=== PATIENT | male | born 1955 | race Caucasian/White ===

== ENCOUNTER → 2020-08-02 08:02 | Outpatient (CLI) | payer BC, SELFPAY ==
--- NOTE | ~2020-08-02 | MR_ITS ---
EXAMINATION: MR knee RT wo con DATE: 08/02/2020 08:44 INDICATION: Generalized right knee pain. Meniscus tear. TECHNIQUE: Magnetic resonance imaging (MRI) of the right knee was performed without intravenous contr ast. Sequences included axial PD-weighted FS FSE, coronal PD-weighted FSE and PD-weighted FS FSE, sag ittal PD-weighted FSE, and sagittal T2-weighted FS FSE. COMPARISON: None. FINDINGS: Medial compartment: There is a complex tear involving body and posterior horn of medial meniscus with displaced flap comp onents superior and inferior to the body segment. There is full-thickness cartilage loss of tibial co ndyle involving the anteromedial articular surface. There is full-thickness cartilage loss of femoral condyle involving the central, medial, and lateral articular surface. There is extensive partial thi ckness cartilage loss of femoral condyle and tibial condyle. There is a subchondral insufficiency fra cture of femoral condyle medially with low signal fracture line and extensive bone marrow edema. Ther e is a subchondral insufficiency fracture of tibial condyle medially with low signal fracture line an d extensive bone marrow edema. Osteophytes are noted. Lateral compartment: There is a vertical tear of posterior horn of lateral meniscus. There is cartilage surface irregulari ty of tibial condyle and femoral condyle. Patellofemoral compartment: There is deep partial thickness cartilage loss of patellar medial and lateral facets and median ridge . There is deep partial thickness cartilage loss of medial trochlea. Osteophytes are noted. Ligaments and tendons: Anterior cruciate ligament is enlarged with increased signal intensity. There is a least a partial te ar of posterior cruciate ligament, which is enlarged with increased signal intensity. There are parti al tears of medial collateral ligament and fibular collateral ligament. There is mild patellar tendin opathy. Fluid: There is a large knee joint effusion with synovitis. There is a 3.0 cm ganglion cyst posterior to lat eral femoral metaphysis. There is trace fluid in a Cobos's cyst. There is semimembranosus-tibial alayna ateral ligament bursitis. There is moderate prepatellar and superficial infrapatellar bursitis. IMPRESSION: 1. Subchondral insufficiency fractures of medial femoral condyle and medial tibial condyle. 2. Severe chondrosis of medial compartment, moderate chondrosis of patellofemoral compartment, and mi ld chondrosis of lateral compartment. 3. Tears of medial and lateral menisci. 4. At least partial tear of posterior cruciate ligament. 5. Enlargement and increased signal in anterior cruciate ligament, which may be mucoid degeneration o r a partial tear. 6. Large knee joint effusion with synovitis. 7. Semimembranosus-tibial collateral ligament bursitis. Reviewed, dictated and finalized at location A. IMPRESSION: 1. Subchondral insufficiency fractures of medial femoral condyle and medial tib ial condyle. 2. Severe chondrosis of medial compartment, moderate chondrosis of patellofemor al compartment, and mild chondrosis of lateral compartment. 3. Tears of medial and lateral menisci. 4. At least partial tear of posterior cruciate ligament. 5. Enlargement and increased signal in anterior cruciate ligament, which may be mucoid degeneration or a partial tear. 6. Large knee joint effusion with synovitis. 7. Semimembranosus-tibial collateral ligament bursitis.
== END ==
PROVIDERS: PCP Internal Medicine
DX: S83.281A Other tear of lateral meniscus, current injury, right knee, initial encounter (principal); S83.241A Other tear of medial meniscus, current injury, right knee, initial encounter; X58.XXXA Exposure to other specified factors, initial encounter; M25.461 Effusion, right knee
CPT/HCPCS: 73721

== ENCOUNTER 2022-08-10 11:00 | Outpatient (RCR) | payer MEDICARE, SELFPAY ==
[2022-06-09 07:43] VITALS: BP_SYST 150
--- NOTE | 2022-06-09 09:52 | OTOPEVAL ---
OCCUPATIONAL THERAPY EVALUATION REPORT 06/09/22 Thank you for referring Charly Elder to [facility] The patient is scheduled to be seen for therapy? 1-2x/week for 6 weeks. Please review, sign, date and return this plan of care HUNTER. I agree with and certify that the following plan of care is medically necessary. Referring Physician Date Referring Provider: Duglas Hernandez MD *OT Outpatient Evaluation Start: 06/09/22 07:39 Evaluation Information Problem Additional Evaluation Detail Cervical stenosis w/ myelopathy s/p laminectomy and occiput-T2 instrumented posterior spinal fusion - 03/28/22 In 2013, he had C4, 5, 6 fused, which he reports he lost some right UE strength and function. Subjective Information s/p acute care, inpatient Query Text:As Reported By Patient/ rehab x2 weeks, home health, Family and now outpatient services. He presents today wearing an aspen collar that he wears at all times unless showering. [place], would like to be able to get back to heavy lifting, mowing, etc. He has progressed to being independent with dressing and toileting. helps with showers. Walks with a cane or walker at home. Reports no falls since returning home. Prior Level of Function Activity Level (Last 3 Months) Occupation Retired Hand Dominance Left Activity of Daily Living Ability Independent Indoor/Home Mobility Independent Community Mobility Independent Stairs Ability Independent Home Setting Home Type House,Single Level Environmental Barriers Stairs, 2-4 Living Situation With Spouse Support Available Local Family Support Mobility Assistive Devices (Used Last 3 Cane,Walker, Rollator,Walker, Months) Wheeled Pain Assessment Timing of Pain Assessment Timing of Pain Assessment Assessment Pain Scale Pain Scale Used Numeric (1 - 10) Self Report Pain Assessment Left Shoulder(s) Reported Pain Level 4 Pain Description Aching Lower Back Reported Pain Level 4 Pain Description Aching,Soreness Neck Reported Pain Level 3 Pain Description Aching P
[2022-07-21 15:15] VITALS: BP_SYST 150
--- NOTE | 2022-07-21 16:22 | OTOPPROG ---
Evaluation Information Assessment Status Progress Diagnosis cervical stenosis w/ myelopathy Subjective Information -Cervical stenosis w/ myelopathy s/p laminectomy and occiput-T2 instrumented posterior spinal fusion - 03/28/22 -In 2013, he had C4, 5, 6 fused, which he reports he lost some right UE strength and function. -Charly has been working with outpatient OT x5 weeks focusing on UE ROM, strengthening, and coordination. He reports improved functional top waddy strength, improved abilities with reaching his face with the right UE, and improved dressing tasks. Overall he is feeling stronger. Assessment OT Clinical Summary Juan Carlos Parks , presents today for OT re- assessment after 5 weeks of therapy. Gross improvements noted in functional strength and ROM of bilateral shoulders, elbows, and hands. Sensation, as measured by the [place]-Tessa monofilament test, demonstrates progress also in bilateral palmar surfaces of the hands. No areas today were tested in the 4.56 threshold (loss of protective). All areas were either measuring in normal, diminished light touch, or diminished protective thresholds. Functional fine motor coordination is also making progress. He continues to exhibit residual weakness and incoordination and will benefit from continued skilled OT for HEP progression and continued functional therapeutic exercsies/activities to facilitate optimal functional strength and use of BUEs. Plan of Care Interventions Therapeutic Exercise,Manual Therapy,Neuro Re- education,Therapeutic Activities,Hot Pack/Cold Pack OT Services Indicated Yes Treatment Frequency and 1x/week for 3-4 weeks. Duration These treatments will address the objective and functional deficits as defined above. The patient will be advanced safely and appropriately in order for the patient to progress towards his/her prior level of function. Additional exercises will be introduced and as well as a comprehensive home exercise program upon discharge, if needed, ?to ensure carryover of functional gains achieved in the clinic. This treatment plan has been reviewed and agreement upon by the patient.
[2022-08-10 11:08] VITALS: BP_SYST 150
--- NOTE | 2022-08-10 13:39 | OTOPDC ---
Assessment and note entered by Maxwell Pace, OTR/Romeo, CHT Evaluation Information Assessment Status Discharge Diagnosis cervial stenosis w/ myelopathy Subjective Information -Cervical stenosis w/ myelopathy s/p laminectomy and occiput-T2 instrumented posterior spinal fusion - 03/28/22 -In 2013, he had C4, 5, 6 fused, which he reports he lost some right UE strength and function. -Charly has been working with outpatient OT x8 weeks focusing on UE ROM, strengthening, and coordination. 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 He states that external rotation of the right shoulder continues to be weak, which restricts his ability to reach the back of his head to wash his hair. Reported Pain Level Pain Score 4: Self Report Additional Pain Score Comments Reporting some low back pain, rated at 4-5/10 when standing. Assessment OT Clinical Summary Juan Carlos Parks , presents today for OT re- assessment after 8 weeks of therapy. Gross improvements noted in functional strength and ROM of bilateral shoulders, elbows, and hands. Sensation, as measured by the [place]-Tessa monofilament test, demonstrates progress also in bilateral palmar surfaces of the hands. No areas today were tested in the 4.56 threshold (loss of protective). All areas were either measuring in normal, diminished light touch, or diminished protective thresholds. At this time he is independent with all HEPs to continue to work on improved ROM, strength, and functional coordination. No further skilled OT indicated at this time. Plan of Care OT Services Indicated No
== END 2022-08-11 16:04 | disposition home or self-care (01) ==
LOC: ANHOT 11:00
PROVIDERS: PCP Internal Medicine
DX: M48.02 Spinal stenosis, cervical region (principal); G95.9 Disease of spinal cord, unspecified; Z98.1 Arthrodesis status
CPT/HCPCS: 97110; 97140; 97167

== ENCOUNTER 2022-09-05 11:00 | Outpatient (RCR) | payer MEDICARE, SELFPAY ==
--- NOTE | 2022-06-09 15:22 | PTOPEVAL ---
PHYSICAL THERAPY INITIAL EVALUATION. Thank you for referring Charly Elder to [facility] The patient is scheduled to be seen for therapy? 2x/week for 8 weeks. Please review, sign, date and return this plan of care HUNTER. I agree with and certify that the following plan of care is medically necessary. Referring Physician Date Attending Provider: Duglas Cochran MD Place *PT Outpatient Evaluation Start: 06/09/22 Evaluation Information Additional Evaluation Detail Cervical stenosis w/ myelopathy s/p laminectomy and occiput-T2 instrumented posterior spinal fusion - 03/28 In 2013, he had C4, 5, 6 fused , which he reports he lost some right UE strength and function. Subjective Information s/p acute care, inpatient Query Text:As Reported By Patient/ rehab x2 weeks, home health, Family and now outpatient services. He presents today wearing an aspen collar that he wears at all times unless showering. Patient and his live on a farm, would like to be able to get back to heavy lifting, mowing, etc. He has progressed to being independent with dressing and toileting. helps with showers. Walks with a cane at home and a rollator when in the community. Reports no falls since returning home. He reports over the last multiple years he has numbness in his LEs. He reports decreased ankle function making it difficult and challenging to walk on uneven surfaces. He would like to ambulate further distances and uneven distances without a cane, perform a curb step without UE assist, floor transfers, and eventually play golf again. Pain Assessment Self Report Pain Assessment Lower Back Reported Pain Level 1 Lowest Pain Intensity 0 Greatest Pain Intensity 5 Lower Extremity Range of Motion Gross Lower Extremity Range of Motion L ankle active dorsiflexion 5deg
--- NOTE | 2022-08-01 15:33 | PTOPPROG ---
Assessment and note entered by Shivani Caceres, PT, DPT Evaluation Information Assessment Status Progress Diagnosis Cervical stenosis w/ myelopathy Subjective Information Pt states he is improving but not where he wants to be. He states he is starting to wean off the cane still. he states he feels like his strength is improving, but slowly. 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 He reports increased neck tightness. Assessment PT Clinical Summary Charly Rangel presents to therapy today following 13 visits of skilled therapy today treat his cervical myelopathy. Today he demonstrates improved LE strength. He demonstrates improvements with his balance, gait speed, and functional mobility. He continues to have significant gait deviations and requires the use of a single point cane for balance. He remains at a high risk of falls according to standardized testing. Continuation of skilled physical therapy services are indicated to address the deficits noted above , to improve safety and functional mobility, and to progress towards baseline function. Plan of Care PT Services Indicated Yes Treatment Frequency and 2x/wk for 5 wks Duration These treatments will address the objective and functional deficits as defined above. The patient will be advanced safely and appropriately in order for the patient to progress towards his/her prior level of function. Additional exercises will be introduced and as well as a comprehensive home exercise program upon discharge, if needed, ?to ensure carryover of functional gains achieved in the clinic. This treatment plan has been reviewed and agreement upon by the patient.
--- NOTE | 2022-09-05 12:57 | PTOPPROG ---
Assessment and note entered by Shivani Caceres, PT, DPT Evaluation Information Assessment Status Progress Diagnosis Cervical stenosis w/ myelopathy Subjective Information Pt states he has intermittent back pain of a 3-4/ 10. He states he feels tightness in his neck that increases with the amount of work he is doing. He states he can walk further without a cane, and he continues to use a rollator when walking outside. He is able to carry light things around his home to help with daily tasks. He states his numbness and tingling in his hands and feet is about the same, but his dexterity is improving. He states his shoulder is feeling better and he has not had pain from it in almost a month. Assessment PT Clinical Summary Charly Rangel presents to therapy today for his progress report following 21 visits of skilled physical therapy to treat his diagnosis of cervical myelopathy. Today he demonstrates slow but consistent improvements in his BLE strength globally but this continues to be decreased from normal and he requires multiple substitutions to complete daily tasks. He demonstrates an improved time with his TUG and 5xSTS but still requires increased time to complete each, and requires use of UE support to perform the 5xSTS. Continuation of skilled physical therapy services are indicated to address the deficits noted above, to improved strength, to promote safety, and to promote unlimited functional mobility. Plan of Care Interventions Gait Training,Manual Therapy,Neuro Re-education, Patient/Caregiver Educati,Therapeutic Activities, Therapeutic Exercise PT Services Indicated Yes Treatment Frequency and 2x/wk for 5 wks Duration These treatments will address the objective and functional deficits as defined above. The patient will be advanced safely and appropriately in order for the patient to progress towards his/her prior level of function. Additional exercises will be introduced and as well as a comprehensive home exercise program upon discharge, if needed, ?to ensure carryover of functional gains achieved in the clinic. This treatment plan has been reviewed and agreement upon by the patient.
== END 2022-09-07 23:59 | disposition home or self-care (01) ==
LOC: ANHPT 11:00
PROVIDERS: PCP Internal Medicine
DX: M48.02 Spinal stenosis, cervical region (principal); G95.9 Disease of spinal cord, unspecified; Z98.1 Arthrodesis status
CPT/HCPCS: 97110; 97112; 97116; 97162; 97530

== ENCOUNTER 2022-11-01 08:45 | Outpatient (RCR) | payer MEDICARE, SELFPAY ==
--- NOTE | 2022-09-15 16:45 | PTOPEVAL1 ---
Assessment and note entered by Kenia Kaplan, PT Evaluation Information Assessment Status Progress Diagnosis Cervical stenosis w/ myelophathy Subjective Information Pt states he has intermittent back pain of a 3-4/ 10. He states he feels tightness in his neck that increases with the amount of work he is doing. He states he can walk further without a cane. He is able to carry light things around his home to help with daily tasks. He states his numbness and tingling in his hands and feet is about the same, but his dexterity is improving. He states his shoulder is feeling better and he has not had pain from it in almost a month. Reported Pain Level Pain Score Offers no c/o pain this date Assessment PT Clinical Summary Pt emperatriz's overall improvement of BUEs allyssa RUE in gravity resisted positions showing full Active ROM right shoulder flexion and abduction in supine in addition to full active ROM RUE elbow flexion bicep strength 3/5. Mobility pt patricia improved balance scores via Tobias balance scale increasing score from 39 to 44/56, timed up and go test reduced from 16 to 13 seconds, and was able to reduce time for 5x sit to stand test to 20 seconds from 25 without use of hands. Cont to demo overall dyskinesias, weakness, postural abnormalities, and gait and balance issues but is continuing to make progress. Discussed with patient today use of pliable AFO for assist in right foot dorsiflexion during ambulation to decrease risk of falls as well. Pt will benefit from cont therapy to continue improvement and become most functionally independent as able. Plan of Care Interventions Therapeutic Exercise,Patient/Caregiver Educati, Manual Therapy,Neuro Re-education,Therapeutic Activities,Gait Training PT Services Indicated Yes These treatments will address the objective and functional deficits as defined above. The patient will be advanced safely and appropriately in order for the patient to progress towards his/her prior level of function. Additional exercises will be introduced and as well as a comprehensive home exercise program upon discharge, if needed, ?to ensure carryover of functional gains achieved in the clinic. This treatment plan has been reviewed and agreement upon by the patient.
--- NOTE | 2022-10-06 11:30 | BUPTOPEVAL1 ---
Assessment and note entered by Kenia Kaplan, PT Evaluation Information Assessment Status Progress Diagnosis Cervical stenosis w/ myelophathy Subjective Information Pt states he has intermittent back pain of a 3-4/ 10. He states he feels tightness in his neck that increases with the amount of work he is doing. He states he can walk further without a cane, and he continues to use a rollator when walking outside. He is able to carry light things around his home to help with daily tasks. He states his numbness and tingling in his hands varies with neck tension. Reported Pain Level Pain Score 3,3: Self Report Additional Pain Score Comments neck feels tight, numbness ranking up to an 8/10 Today is a soreness after being more active yesterday and lifting buckets Assessment PT Clinical Summary Pt cont to demo significant deficits in proprioception, coordination, strength, muscle patterning and thus balance, and mobiltiy and gait deficits. Standardized tests and observable changes have improved overall. Pt cont to c/o numbness in hands changing with tension in his neck musculature. IASTM initiated to soft tissues surrounding cervical incision today with taping to decompress soft tissues in attempt to improve nn conduction. Pt has not ceased progression and cont to have deficits that would benefit from continued therapy. Increasing education on modifications to allow pt to be more safe with activities, to improve muscle activity without causing reliance on DME in order to improve safe and functional independence. Plan of Care Interventions Check Out for Orthotic/Pr,Electrical Stimulation, Hot Pack/Cold Pack,Manual Therapy,Neuro Re- education,Prosthetic Training,Therapeutic Activities,Therapeutic Exercise,Other Other Interventions Fluidotherapy PT Services Indicated Yes Treatment Frequency and 2x weekly x 5 weeks Duration These treatments will address the objective and functional deficits as defined above. The patient will be advanced safely and appropriately in order for the patient to progress towards his/her prior level of function. Additional exercises will be introduced and as well as a comprehensive home exercise program upon discharge, if needed, ?to ensure carryover of functional gains achieved in the clinic. This treatment plan has been reviewed and agreement upon by the patient.
--- NOTE | 2022-11-01 16:06 | BUPTOPEVAL1 ---
Assessment and note entered by Kenia Kaplan, PT Assessment Status Progress Report Diagnosis Cervical stenosis w/ myelophathy Subjective Information Pt states he feels the manual and taping are helping in his neck tension. Cont to have pain in back and shoulder at times as well. He states his numbness and tingling in his hands and feet is about the same, but his dexterity is improving. Reports he will be trying acupuncture for the numbness in his hands. Reported Pain Level Pain Score 0: Self Report currently but pain will increase in back and shoulder pending activity Assessment PT Clinical Summary Pt cont to demo significant deficits in proprioception, coordination, strength, muscle patterning and thus balance, and mobility and gait deficits. Standardized tests and observable changes have improved overall. Today evaluation shows decreased passive ROM of bilat hips as well as decreased strength bilat glute med and max ( although overall improved) Pt cont to make slow and steady progress with balance, strength, and overall quality and safety of movement. Thus pt will benefit from continued physical therapy to help pt achieve maximal independence and function. Plan of Care Interventions Check Out for Orthotic/Pr,Electrical Stimulation, Hot Pack/Cold Pack,Manual Therapy,Neuro Re- education,Prosthetic Training,Therapeutic Activities,Therapeutic Exercise,Other Other Interventions Fluidotherapy PT Services Indicated Yes Treatment Frequency and 2x weekly x 4 weeks Duration These treatments will address the objective and functional deficits as defined above. The patient will be advanced safely and appropriately in order for the patient to progress towards his/her prior level of function. Additional exercises will be introduced and as well as a comprehensive home exercise program upon discharge, if needed, ?to ensure carryover of functional gains achieved in the clinic. This treatment plan has been reviewed and agreement upon by the patient.
--- NOTE | 2022-11-08 16:55 | PCPTNOTE ---
This treatment is being continued on visit number [id number]. Please see documentation on both accounts to view progress. Completed interventions, outcomes, and problems have been marked as Inactive to facilitate the copying of the Care plan routine for recurring accounts.
== END 2022-11-08 15:07 | disposition still patient (30) ==
LOC: ANHHIPT 08:45
PROVIDERS: PCP Internal Medicine
DX: M48.02 Spinal stenosis, cervical region (principal); G95.9 Disease of spinal cord, unspecified; Z98.1 Arthrodesis status
CPT/HCPCS: 97014; 97110; 97112; 97116; 97140; 97530; G0283

== ENCOUNTER 2023-01-23 11:15 | Outpatient (RCR) | payer MEDICARE, SELFPAY ==
--- NOTE | 2022-11-08 16:55 | PCPTNOTE ---
The treatment documented on this account is a continuation of the treatment documented on visit number [id number]. Please see documentation on both accounts to view progress. The Plan of Care has been transitioned and updated within the new V#. I have addressed and agree with the discipline specific Problems, Interventions, and Goals for the current certification period. Completed interventions, outcomes, and problems have been marked as Inactive to facilitate the copying of the Care plan routine for recurring accounts.
--- NOTE | 2022-11-21 14:49 | PCPTNOTE ---
Patient called & cancelled scheduled appointment this date due to being sick, having Covid. Will resume therapy as able.
--- NOTE | 2022-12-01 13:41 | OTOPEVDC ---
Assessment and note entered by Maxwell Pace, OTR/Romeo, CHT Thank you for referring Charly Elder to [facility].? An evaluation has been completed. No further treatment is needed. Evaluation Information Assessment Status Evaluation Subjective Information Patient reports no pain today. States he has been doing his HEP since he was discharged here back in Jul. States he notices progress with being able to carry items and walk, such as bringing groceries in. 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 Reported Pain Level Pain Score 0: Self Report Assessment OT Clinical Summary Charly is a 67 year-old, left handed male who presents for OT evaluation to compare to his progress from his previous assessment back in Jul 2022. At this time his shoulder and elbow ROM has remained relatively unchanged. He is raising the right shoulder 10 more degrees than a few months ago. The right elbow is slightly stronger (4-/5 to 4/5 muscle grade). 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 less and the left is measuring the same. Discussed these findings and recommended that he continues to work on his current home exercise program for flexibility and strengthening and to focus on gross gripping when working with his putty. He verbalized excellent understanding. No further skilled OT indicated at this time. Plan of Care OT Services Indicated No
--- NOTE | 2023-01-15 16:27 | PTOPPROG ---
Assessment and note entered by Kenia Kaplan, PT Evaluation Information Assessment Status Progress Diagnosis Cervical stenosis w/ myelophathy Subjective Information States feels he can walk better and have less discomfort. Was able to walk on uneven ground and get on the ground with his granddaughter without discomfort. Assessment PT Clinical Summary Pt cont to make slow progress with appropriate function and less compensatory techniques. He has been attending therapy consistently for multiple months with strength deficits, coordination deficits, difficulty with mobility and safe ambulation. He has been showing improvement in strength and range, however cont to demo significantly decreased strength and control of rigth glute med and anterior tib specifically with loading of right leg during ambulation. Due to the nature of his progress, pt has reached a point at which he would benefit from a change in focus to a half-way home program to continue to make improvements independently. Pt will also benefit greatly from use of a dynamic AFO for consistent active assistive ROM of dorsiflexion in gait to improve muscle activation patterns of anterior tibialis. Plan of Care Interventions Gait Training,Hot Pack/Cold Pack,Neuro Re- education,Therapeutic Exercise,Self-Care/Home Management PT Services Indicated Yes Treatment Frequency and 1x weekly x 4 weeks to finalize home program, and Duration assist with ankle foot orthosis application These treatments will address the objective and functional deficits as defined above. The patient will be advanced safely and appropriately in order for the patient to progress towards his/her prior level of function. Additional exercises will be introduced and as well as a comprehensive home exercise program upon discharge, if needed, ?to ensure carryover of functional gains achieved in the clinic. This treatment plan has been reviewed and agreement upon by the patient.
== END 2023-01-30 13:34 | disposition still patient (30) ==
LOC: ANHHIPT 11:15
PROVIDERS: PCP Internal Medicine
DX: M48.02 Spinal stenosis, cervical region (principal); G95.9 Disease of spinal cord, unspecified; Z98.1 Arthrodesis status
CPT/HCPCS: 97110; 97112; 97140; 97166

== ENCOUNTER 2023-02-14 10:15 | Outpatient (RCR) | payer MEDICARE, SELFPAY ==
--- NOTE | 2023-02-14 15:41 | PTOPDC ---
Assessment and note entered by Kenia Kaplan, PT Assessment Status Discharge Diagnosis gait and mobility deficit Onset 05/2022 Subjective Information Pt had surgery on cervical spinein 05/2022 secondary to cervical spondylosis wth myelopathy Reported Pain Level Pain Score 2: Self Report Assessment PT Clinical Summary Pt has attended therapy consistently for many months after cervical surgery. He has advance greatly in multiple aspects of mobility including 5x sit to stand test, quality of movement with with sit>stand, improved balance and ambulation ability with less assist required. Pt is currently in process of obtaining dynamic ankle foot orthosis to continue to improve ambulation, reports understanding of continued exercise to improve gait related to glute med weakness, and when to return to therapy if needed. Pt scores remain unchanged compared to last reevaluation suggesting pt appears to have plateaued in therapy at this time. Thus pt is being discharged from current POC.
== END 2023-02-15 09:19 | disposition home or self-care (01) ==
LOC: ANHHIPT 10:15
PROVIDERS: PCP Nurse Practitioner Family
DX: M48.02 Spinal stenosis, cervical region (principal); G95.9 Disease of spinal cord, unspecified; Z98.1 Arthrodesis status
CPT/HCPCS: 97110; 97112

== ENCOUNTER 2024-02-29 13:30 | Outpatient (RCR) | payer MEDICARE, SELFPAY ==
--- NOTE | 2023-12-13 16:25 | PTOPEVAL1 ---
Assessment and note entered by Kenia Kaplan, PT Evaluation Information Assessment Status Diagnosis Evaluation right drop foot, cervical radiculopathy low back pain, weakness, other abnormalities of gait and mobility, paresthesias, anesthesias Subjective Information Pt reports his main concern is his walking and core strength. States back hurts when standing long periods. Feels like may need a few more abdominal strengthening activities wants to strengthen to be able to walk without a cane When was on prednisone for 2 weeks, had more energy and felt like he was clearer. Was taking methatrexate and has been on Marifer for a year, stopped this as felt this wasn't helping. Since last therapy did red light laser therapy, acupuncture, foot detox, massage, nutrition supplements. Feels like has hit a wall, feels like hands are number than they were. Was referred to neurologist at [facility] and they did a brain and back MRI, states no sign of multiple sclerosis or neurological problems. Neurologist states spinal cord was injured and attributes issues to this. Reports has new sensation of numbness in left side of chin and sometimes in left side of lip. Also felt like was being strangled and with the prednisone felt relief from the tension of this. Has signed up with Dr. Diana in [place] [facility] and now has his own equipment, and is on day 5. Does this on his legs and feet 2x daily, electrical stim in a bucket of water and puts feet in bucket of water, then also does e-stim stimulator gloves with nutritional supplements. Has not done anodyne on hands , but is going to start hands and arms today. Feels like doctors may be missing something. Is trying to do nutrition and other methods of healing. Reported Pain Level Pain Score 1: Self Report Assessment PT Clinical Summary Pt presents with paresthesia, anesthesia, cervical radiculopathy, unspecified drop foot, and a history of multiple cervical spine surgeries, lumbar surgery, and reported prior spinal cord injury. He states his biggest concern is walking without a cane, and his back pain. He reports
--- NOTE | 2023-12-13 16:27 | OPREHPOC ---
Outpatient Therapy Plan of Care This is a Multidisciplinary Plan of Care that may contain components documented by all disciplines (PT, OT, and ST.) PT Goal 1 Goal Pt will be independent in HEP Pt will verbalize understanding of diagnosis and prognosis Target Visit 10 PT Problem 2 PT Problem #2 Impaired Strength PT Goal 1 Goal Pt will demo equal strength RLE and LLE in all tested planes Target Visit 10 PT Goal 2 Goal Pt will demo strength of 4/5 in all tested planes Target Visit 20 PT Problem 3 PT Problem #3 Impaired Gait PT Goal 1 Goal Pt will demo ability to perform upright gait with improved base of support and improved hip flexion Target Visit 10 PT Goal 2 Goal Pt will demo gait with resolution of Trendelenburg PT Problem 5 PT Problem #5 Impaired Flexibility PT Goal 1 Goal Pt will demo prone knee flexion of 100 degrees to demo improved quad flexibilty Target Visit 10 PT Goal 2 Goal Pt will demo improved illiotibial band flexibility of LLE to equal RLE Target Visit 20
--- NOTE | 2024-01-22 09:25 | PTOPPROG ---
Assessment and note entered by Kenia Kaplan, PT Assessment Status Progress Report Therapy Conditions Right foot drop, cervical radiculopathy low back pain, weakness, oth abnormalities of gait and mobility paresthesias, anesthesias Subjective Information Pt states his back pain is a new constant that hadn't had previously he is noticing as a weakness . Recently on vacation had a lot of steps had to address. States this feels like what aggravated his back. Was also walking a lot on vacation. Had one day that his back pain was up to an 8/10, hadn 't experienced pain like that in a long time . Used Tylenol Arthritis and stretching and ice bag over the course of a day (3 doses of tylenol). Next day was almost tolerable but was walking with every step expecting knife pain in the back . Was able to do everything planned but with caution and slow motion. Pt reports cont to use red light therapy and electricity (90 day program) about half way through but no changes seen yet. Numbness is still beyond hand and fingers. Assessment PT Clinical Summary Pt had attended therapy consistently for 7 visits then had a break due to vacation for multiple weeks. Returned today for reevaluation and continuation. Cont to demo significant weakness bilat hips and core, decreased hip ROM in multiple planes overall, continued muscle activation of anterior tib however has not increased in strength yet. Reports while on vacation had a couple days in which his back was very painful. Also states his other program with infrared and stim has not had any effect on his paraesthesias yet. Pt will benefit from continued therapy with possible mild shift in focus to offload lumbar spine, possible dry needling for muscle tone and discomfort, and continued isolated strengthening for improved gait and mobility Plan of Care Interventions Check Out for Orthotic/Pr,Electrical Stimulation, Gait Training,Hot Pack/Cold Pack,Manual Therapy, Neuro Re-education,Therapeutic Activities, Therapeutic Exercise,Self-Care/Home Management PT Services Indicated Yes Treatment Frequency and 1-2x weekly x 12 visits Duration These treatments will address the objective and functional deficits as defined above. The patient will be advanced safely and appropriately in order for the patient to progress towards his/her prior level of function. Additional exercises will be introduced and as well as a comprehensive home ex
--- NOTE | 2024-02-29 14:15 | PTOPDC ---
Assessment and note entered by Kenia Kaplan, PT Assessment Status Discharge Diagnosis right foot drop, cervical radiculopathy, parasthesias and aneasthesias Onset chronic Subjective Information Pt states he has recently been to two neuro surgeons who feel it is necessary to perform laminectomies on his lumbar spine He also has recently started seeing urology and cardiology for other co-morbidities Wants to wrap up therapy until he figures out what he wants to do with this new information Reported Pain Level Pain Score 3: Self Report Assessment PT Clinical Summary Pt attended 11 therapy sessions with two gaps in the plan of care due to vacations. He has presented at his scheduled times and gives full effort during therapy treatments. He has been educated in DME, optional therapies, and resources to modify his lifestyle and decrease burden of activities. Through this plan of care his back pain has continued to worsen, his hip ROM and strength has not progressed, and his drop foot continues. His recent visits with neurosurgery have provided additional avenues of addressing his deficits thus pt would like to explore these routes at this time. Thus is being discharged today per pt request. Plan of Care PT Services Indicated No
== END 2024-03-12 23:59 | disposition home or self-care (01) ==
LOC: ANHHIPT 13:30
PROVIDERS: PCP Family Medicine; Visit Provider Family Medicine
DX: M54.12 Radiculopathy, cervical region (principal); M21.379 Foot drop, unspecified foot; R53.1 Weakness; R20.0 Anesthesia of skin; R20.2 Paresthesia of skin
CPT/HCPCS: 97014; 97110; 97112; 97140; 97163; 97750; G0283

== ENCOUNTER 2024-03-06 00:48 | Day surgery (SDC) | payer MEDICARE, SELFPAY ==
[2024-03-06 08:12] VITALS: BP 163/83; PULSE 69; RESP 18; TEMP 36.2; O2SAT 100
[2024-03-06] MEDS: LACTATED RINGERS 1,000 ML 150 ML IV CONT (08:30)
--- NOTE | 2024-03-06 09:00 | WPDANESEPPF ---
Anes - Initial Pre Proc Eval Procedure: Operation Date: 03/06/24 09:30 Proposed Procedures p Screening Colonoscopy - Gonzalo Ellsworth DO Date/Time: 03/06/24 09:00 Surgeon: Gonzalo Ellsworth DO Pre Op Diagnosis: History of colon polyps Patient Data Age: 68 Gender: M Height: Weight: 124.9 kg Last Vital Signs Temp 97.1 F L 03/06/24 08:12 Pulse 69 03/06/24 08:12 Resp 18 03/06/24 08:12 BP 163/83 H 03/06/24 08:12 Pulse Ox 100 03/06/24 08:12 O2 Del Method Room Air 03/06/24 08:12 Allergies Allergy/AdvReac Type Severity Reaction Status Date / Time No Known Allergies Allergy Verified 03/06/24 08:10 Home Medications Medication Instructions Recorded Confirmed Type Bacillus coagulans 250 million 250 cell PO DAILY 12/04/22 02/22/24 History cell chewable tablet (Digestive Advantage Probiotic Gummy) acetaminophen 650 mg 650 mg PO Q12H 12/04/22 02/22/24 History tablet,extended release (Arthritis Pain Relief (acetaminophen) ER) adalimumab 40 mg/0.4 mL See Rx Instructions subcut .COMPLEX 12/04/22 02/22/24 History subcutaneous syringe kit (Humira(CF)) aspirin 81 mg tablet,delayed 81 mg PO DAILY 12/04/22 02/22/24 History release (Adult Low Dose Aspirin) calcium carb-vit [id number] 1 tablet PO DAILY 12/04/22 02/22/24 History 333 mg-200 unit-133 mg-5 mg tablet cholecalciferol (vitamin D3) 62.5 25 mcg PO DAILY 12/04/22 02/22/24 History mcg (2,500 unit) capsule multivitamin (Daily Multi-Vitamin 1 tablet PO DAILY 12/04/22 02/22/24 History tablet) levothyroxine 125 mcg tablet See Rx Instructions .Route 11/13/23 02/22/24 Rx .COMPLEX #90 tabs meloxicam 15 mg tablet See Rx Instructions .Route 11/22/23 02/22/24 Rx .COMPLEX #90 tabs losartan 100 mg tablet See Rx Instructions .Route 11/30/23 02/22/24 Rx .COMPLEX #90 tabs prednisone 5 mg tablet See Rx Instructions .Route 03/03/24 03/06/24 Rx .COMPLEX #90 tabs Patient hx anesthesia problems: none Family hx anesthesia problems: none Results Review: All pre-operative results and documents have been reviewed as part of the pre-operative evaluation. [facility] Past Medical History Medical History Anemia Arthritis Calf muscle weakness Cervical radiculopathy Claustrophobia Excessive cerumen in ear canal Foot drop Hypertension Hypothyroid Lumbar pain Numbness and tingling Trigger finger of right hand Weakness Surgical History Surgical History H/O arthroscopy of knee H/O discectomy History of carpal tunnel release History of knee replacement, total right-10/14/2020 left-11/28/2021 History of laminectomy L3, L4 Hx of left knee surgery Family History Family History Father Hypertension Heart disease Cerebrovascular accident Mother Diabetes mellitus Cancer Sibling Diabetes mellitus Hypertension Heart disease Cerebrovascular accident Other Family history of arthritis Family history of congestive heart failure Family history of malignant neoplasm Social History Social History (Updated 02/12/24 @ 13:38 by Vikki Schwarz CMA) Smoking status: Never smoker Alcohol intake: current Drinks per week: 2 Substance use: never Substance use type: does not use Do You Feel Safe in your Home?: Yes Lack of Transportation: No Lack of Food: Never True Current Housing: I Have Housing Concerned About Future Housing: No Difficulty Paying Gas/Electric Bills: No Difficulty Paying for Meds: No Currently Unemployed: No Education: Associate Degree Difficulty w/ Childcare or Family Care: No Living arrangements: with family Occupation/Education: retired Gender identity (if verbalized by the patient): Male Sexual Orientation (if Verbalized by the Patient): Straight or Hete
--- NOTE | 2024-03-06 09:44 | PM.IMHP ---
H&P: HPI History of Present Illness Date/Time: 03/06/24 09:44 Chief Complaint: history of colon polyps Narrative: this is a 68-year-old man who presents for colonoscopy. His last colonoscopy was 5 years ago and a polyp was removed. He denies any family history of colon cancer. He denies any hematochezia or melena. Review of Systems Review of Systems: All systems reviewed & are unremarkable except as noted in HPI and below Constitutional: Constitutional: Denies chills, Denies fever(s), Denies headache(s) and Denies weight loss Eyes: Eyes: Denies change in vision ENT: Denies dizziness, Denies headache(s), Denies neck mass and Denies throat swelling Cardiovascular: Cardiovascular: Denies chest pain, Denies lightheadedness and Denies dyspnea Respiratory: Respiratory: Denies cough, Denies dyspnea and Denies wheezing Gastrointestinal: Gastrointestinal: Denies abdominal pain, Denies change in bowel habits, Denies nausea and Denies vomiting Genitourinary: Genitourinary: Denies hematuria and Denies dysuria Musculoskeletal: Musculoskeletal: Reports as per HPI Integumentary/Breasts: Skin/Breast: Reports as per HPI Neurologic: Denies dizziness and Denies headache(s) Allergic/Immunologic: Allergic/Immunologic: Denies throat swelling and Denies wheezing [facility] Past Medical History Medical History Anemia Arthritis Calf muscle weakness Cervical radiculopathy Claustrophobia Excessive cerumen in ear canal Foot drop Hypertension Hypothyroid Lumbar pain Numbness and tingling Trigger finger of right hand Weakness Surgical History Surgical History H/O arthroscopy of knee H/O discectomy History of carpal tunnel release History of knee replacement, total right-10/14/2020 left-11/28/2021 History of laminectomy L3, L4 Hx of left knee surgery Family History Family History Father Hypertension Heart disease Cerebrovascular accident Mother Diabetes mellitus Cancer Sibling Diabetes mellitus Hypertension Heart disease Cerebrovascular accident Other Family history of arthritis Family history of congestive heart failure Family history of malignant neoplasm Social History Social History (Updated 02/12/24 @ 13:38 by Vikki Schwarz CMA) Smoking status: Never smoker Alcohol intake: current Drinks per week: 2 Substance use: never Substance use type: does not use Do You Feel Safe in your Home?: Yes Lack of Transportation: No Lack of Food: Never True Current Housing: I Have Housing Concerned About Future Housing: No Difficulty Paying Gas/Electric Bills: No Difficulty Paying for Meds: No Currently Unemployed: No Education: Associate Degree Difficulty w/ Childcare or Family Care: No Living arrangements: with family Occupation/Education: retired Gender identity (if verbalized by the patient): Male Sexual Orientation (if Verbalized by the Patient): Straight or Heterosexual Spiritual care concerns: No Agree to blood products: Yes Meds Home Medications and Allergies Home Medications Medication Instructions Recorded Confirmed Type Bacillus coagulans 250 million 250 cell PO DAILY 12/04/22 02/22/24 History cell chewable tablet (Digestive Advantage Probiotic Gummy) acetaminophen 650 mg 650 mg PO Q12H 12/04/22 02/22/24 History tablet,extended release (Arthritis Pain Relief (acetaminophen) ER) adalimumab 40 mg/0.4 mL See Rx Instructions subcut .COMPLEX 12/04/22 02/22/24 History subcutaneous syringe kit (Humira(CF)) aspirin 81 mg tablet,delayed 81 mg PO DAILY 12/04/22 02/22/24 History release (Adult Low Dose Aspirin) calcium carb-vit [id number] 1 tablet PO DAILY 12/04/22 02/22/24 History 333 mg-200 unit-133 mg-5 mg tablet cholecalciferol (vitamin
[2024-03-06 10:26] VITALS: BP 118/60; PULSE 70; RESP 23; O2SAT 98
[2024-03-06 10:36] VITALS: BP 101/56; PULSE 68; RESP 20; O2SAT 96
[2024-03-06 10:46] VITALS: BP 147/77; PULSE 61; RESP 24; O2SAT 100
== END 2024-03-06 10:53 | disposition home or self-care (01) ==
PROVIDERS: PCP Family Medicine; Visit Provider Surgery
PROC: 0DJD8ZZ Inspection of Lower Intestinal Tract, Via Natural or Artificial Opening Endoscopic (ICD-10-PCS; CPT 45378; principal; 2024-03-06 09:30)
DX: Z12.11 Encounter for screening for malignant neoplasm of colon (principal); K57.30 Diverticulosis of large intestine without perforation or abscess without bleeding; I10 Essential (primary) hypertension; E03.9 Hypothyroidism, unspecified; D64.9 Anemia, unspecified; F40.240 Claustrophobia; Z79.620 Long term (current) use of immunosuppressive biologic; Z79.82 Long term (current) use of aspirin; Z79.52 Long term (current) use of systemic steroids; Z98.890 Other specified postprocedural states; Z98.1 Arthrodesis status; Z86.010 Personal history of colon polyps; Z80.9 Family history of malignant neoplasm, unspecified; Z82.49 Family history of ischemic heart disease and other diseases of the circulatory system
CPT/HCPCS: G0105; J2001; J2704; J7120

== ENCOUNTER 2024-10-27 14:47 | Outpatient (CLI) | payer MEDICARE, SELFPAY ==
--- NOTE | ~2024-10-27 | MR_ITS ---
EXAMINATION: MR shoulder RT wo con DATE: 10/27/2024 16:29 INDICATION: Right shoulder pain. TECHNIQUE: Magnetic resonance imaging (MRI) of the right shoulder was performed without intravenous c ontrast. COMPARISON: None. FINDINGS: Coracoacromial arch: The acromion undersurface is curved in morphology (type II). There is severe acromioclavicular joint osteoarthritis including inferiorly directed osteophytes. There is an effusion of acromioclavicular j oint that communicates with the subacromial/subdeltoid bursa. There is severe subacromial/subdeltoid bursitis. Rotator cuff: There is a full-thickness tear of supraspinatus and infraspinatus tendons measuring greater than 5 cm anterior to posterior by greater than 5 cm proximal to distal. Teres minor tendon is normal. There i s an articular-sided partial tear of subscapularis tendon. There is moderate fatty atrophy of suprasp inatus and infraspinatus muscle bellies, severe fatty atrophy of teres minor muscle belly, and modera te fatty atrophy of subscapularis muscle belly. Biceps tendon and glenoid labrum: There is a complete tear of proximal biceps tendon. There is extensive tearing of the glenoid labrum. Fluid: There is a large glenohumeral joint effusion. Bones/cartilage: There is widening of the glenohumeral joint. There is partial-thickness cartilage loss of glenoid and humeral head. IMPRESSION: 1. Massive full-thickness rotator cuff tear. 2. Widening of the glenohumeral joint. Mild glenohumeral joint chondrosis. 3. Severe acromioclavicular joint osteoarthritis. 4. Complete tear of proximal biceps tendon. 5. Large glenohumeral joint effusion, severe subacromial/subdeltoid bursitis, and communicating acrom ioclavicular joint effusion. Reviewed, dictated and finalized at location A. [employer] IMPRESSION: 1. Massive full-thickness rotator cuff tear. 2. Widening of the glenohumeral joint. Mild glenohumeral joint chondrosis. 3. Severe acromioclavicular joint osteoarthritis. 4. Complete tear of proximal biceps tendon. 5. Large glenohumeral joint effusion, severe subacromial/subdeltoid bursitis, a nd communicating acromioclavicular joint effusion.
--- NOTE | ~2024-10-27 | MR_ITS ---
EXAMINATION: MR shoulder LT wo con DATE: 10/27/2024 16:30 INDICATION: Left shoulder pain. TECHNIQUE: Magnetic resonance imaging (MRI) of the left shoulder was performed without intravenous co ntrast. Sequences included axial PD-weighted FS FSE, coronal oblique PD-weighted FS FSE and T2-weight ed FS FSE, and sagittal oblique T2-weighted FS FSE and T1-weighted FSE. COMPARISON: None. FINDINGS: Coracoacromial arch: The acromion undersurface is flat in morphology (type I). There is severe acromioclavicular joint ost eoarthritis including inferiorly directed osteophytes. There is mild subacromial/subdeltoid bursitis. Rotator cuff: There is an obliquely oriented thin full-thickness tear of supraspinatus tendon measuring 3.8 cm prox imal to distal by 2.4 cm anterior to posterior. There is moderate infraspinatus tendinopathy with sma ll partial tear at the myotendinous junction. Teres minor tendon is normal. There is a full-thickness tear of subscapularis tendon. There is moderate fatty atrophy of subscapularis muscle belly and mild fatty atrophy of teres minor muscle belly. Biceps tendon and glenoid labrum: There is a complete tear of proximal biceps tendon. There is a tear of superior glenoid labrum (SLAP tear). Fluid: There is a large glenohumeral joint effusion. Bones/cartilage: There is cartilage surface irregularity of glenoid and humeral head. IMPRESSION: 1. Full-thickness rotator cuff tear. 2. Mild glenohumeral joint chondrosis. 3. Complete tear of proximal biceps tendon. 4. Severe acromioclavicular joint osteoarthritis. 5. Large glenohumeral joint effusion and mild subacromial/subdeltoid bursitis. Reviewed, dictated and finalized at location A. P[facility]ER
== END 2024-10-27 14:48 | disposition home or self-care (01) ==
LOC: MICIMG 14:48
PROVIDERS: PCP Nurse Practitioner Family; Visit Provider Nurse Practitioner Family
DX: M19.011 Primary osteoarthritis, right shoulder (principal); S46.211A Strain of muscle, fascia and tendon of other parts of biceps, right arm, initial encounter; S46.212A Strain of muscle, fascia and tendon of other parts of biceps, left arm, initial encounter; X58.XXXA Exposure to other specified factors, initial encounter; M25.411 Effusion, right shoulder; M75.102 Unspecified rotator cuff tear or rupture of left shoulder, not specified as traumatic; M19.012 Primary osteoarthritis, left shoulder; M25.412 Effusion, left shoulder
CPT/HCPCS: 73221